=== PATIENT | male | born 1940 | race Caucasian/White ===

== ENCOUNTER 2016-07-25 09:00 | Outpatient (CLI) | payer MEDICARE | END 2016-07-25 09:01 | disposition home or self-care (01) | DX: N18.9 Chronic kidney disease, unspecified (principal); I10 Essential (primary) hypertension; R97.20 Elevated prostate specific antigen [PSA] ==

== ENCOUNTER 2017-07-30 08:00 | Outpatient (CLI) | payer MEDICARE | END 2017-07-30 08:01 | LOC: LAB.WCP 08:00 | PROVIDERS: ATTEND Urology | DX: R97.20 Elevated prostate specific antigen [PSA] (principal) | CPT/HCPCS: 36415; 84153 ==